=== PATIENT | female | born 1960 | race Caucasian/White ===

== ENCOUNTER → 2021-02-11 | Outpatient (CLI) | payer OTHER | LOC: COL.RAD 10:00 | DX: M19.031 Primary osteoarthritis, right wrist (principal) | CPT/HCPCS: J3301; Q9967 ==

== ENCOUNTER → 2022-08-03 | Outpatient (CLI) | payer OTHER | LOC: COL.RAD 13:19 | DX: M19.031 Primary osteoarthritis, right wrist (principal) | CPT/HCPCS: J3301; Q9967 ==